=== PATIENT | female | born 1970 | race American Indian/Alaskan Native ===

== ENCOUNTER 2017-05-01 15:19 | Emergency (ER) | payer BC ==
[2017-05-01 15:26] VITALS: BP 182/72
--- NOTE | 2017-05-01 16:20 | Emergency Department Report ---
Blank Doc - Documentation Documentation: Patient went to urgent care for right shoulder pain and sudden, that started yesterday but stopped she is no longer in pain. She also noticed some left leg swelling, and discoloration. She was sent to ED to rule out DVT.
--- NOTE | 2017-05-01 18:19 | Emergency Department Report ---
HPI - General Chief Complaint: Extremity Injury, Lower - HPI HPI: 46-year-old -[place] female presents to the ED as a referral from the urgent care with elevated BP, left leg swelling. No chest pain no shortness of breath that she also had right shoulder pain yesterday. Her right shoulder pain has since been gone. ED Past Medical Hx - Past Medical History Previous Medical History?: No Hx Hypertension: No Hx CVA: No - Surgical History Past Surgical History?: Yes Additional Surgical History: - Social History Smoking Status: Current Every Day Smoker Substance Use Type: Alcohol - Medications Home Medications: Home Medications Medication Instructions Recorded Confirmed Last Taken Type Hydrochlorothiazide [HCTZ] 25 mg PO QDAY #30 tablet 05/01/17 Unknown Rx ED Review of Systems ROS: Stated complaint: NUMBNESS IN LEFT LEG Other details as noted in HPI Comment: All other systems reviewed and negative Constitutional: no symptoms reported Gastrointestinal: denies: abdominal pain Musculoskeletal: myalgia Physical Exam - Physical Exam Vital Signs: Vital Signs 05/01/17 15:22 Temperature 98.5 F Pulse Rate 78 Respiratory 18 Rate Blood Pressure 182/72 O2 Sat by Pulse 100 Oximetry Physical Exam: - Physical Exam Physical Exam: - General Limitations: No Limitations General appearance: alert, in no apparent distress, obese - Head Head exam: Present: atraumatic, normocephalic - Eye Eye exam: Present: normal appearance - ENT ENT exam: Present: mucous membranes moist - Neck Neck exam: Present: normal inspection - Respiratory Respiratory exam: Present: normal lung sounds bilaterally. Absent: respiratory distress - Cardiovascular Cardiovascular Exam: Present: normal rhythm, tachycardia. Absent: systolic murmur, diastolic murmur, rubs, gallop - GI/Abdominal GI/Abdominal exam: Present: soft, normal bowel sounds - Extremities Exam Extremities exam: Present: Left lower leg with 1+ edema, slight discoloration. - Back Exam Back exam: Present: normal inspection - Neurological Exam Neurological exam: Present: alert, oriented X3 - Psychiatric Psychiatric exam: normal affect and mood - Skin Skin exam: Present: warm, dry, intact, normal color. Absent: rash ED Course Vital Signs 05/01/17 15:22 Temperature 98.5 F Pulse Rate 78 Respiratory 18 Rate Blood Pressure 182/72 O2 Sat by Pulse 100 Oximetry Critical care attestation.: If time is entered above; I have spent that time in minutes in the direct care of this critically ill patient, excluding procedure time. ED Disposition Clinical Impression: Leg pain Qualifiers: Laterality: left Qualified Code(s): M79.605 - Pain in left leg Hypertension Qualifiers: Hypertension type: essential hypertension Qualified Code(s): I10 - Essential ( primary) hypertension Disposition: TO HOME OR SELFCARE Is pt being admited?: No Does the pt Need Aspirin: No Condition: Stable Instructions: Hypertension (ED) Prescriptions: Hydrochlorothiazide [HCTZ] 25 mg PO QDAY #30 tablet Referrals: PRIMARY CARE, [Primary Care Provider] - 3-5 Days
== END 2017-05-01 18:37 | disposition home or self-care (01) ==
LOC: ED 15:19
DX: I10 Essential (primary) hypertension (principal); M79.605 Pain in left leg; F17.200 Nicotine dependence, unspecified, uncomplicated